=== PATIENT | male | born 1965 | race Caucasian/White ===

== ENCOUNTER 2017-09-28 08:43 | Emergency (ER) | payer OTHER ==
[~2017-09-28 08:43] MED LIST: ATEN-102 PO; CLON0.2T PO; HYDR12.56 PO; LORT7.5T3 PO; SIMV5TAB3 OR
[2017-09-28 08:48] VITALS: BP 157/84; PULSE 92; RESP 16; TEMP 97.9; O2SAT 97
[2017-09-28] MEDS ORDERED: [UNRECOGNIZED DRUG - CODE] PO (09:01)
[2017-09-28] MEDS ORDERED: SIMV20TA PO (09:01)
[2017-09-28] MEDS ORDERED: ASPI81CH6 CHEW (09:01)
[2017-09-28] MEDS ORDERED: HYDR-3580 PO (09:01)
[2017-09-28] MEDS ORDERED: AMOX500T PO (09:07)
--- NOTE | 2017-09-28 09:08 | PD ---
HPI Chief Complaint: Cold / Flu Symptoms Time Seen by Provider: 08:52 Travel History International Travel<30 days: No Contact w/Intl Traveler<30days: No Traveled to known affect area: No History of Present Illness HPI This 52-year-old male is been sick for the last 8 days. He's been having general malaise. His been having a lot of nasal congestion. Sneezing and green phlegm is coming out of his nose. He has congestion around the eyes. He' s had a slight cough. He does not have a history of sinus disease. He's been using [id number] medications without much response. He is not aware of fever. He has had a sore throat for several days. He has had tinnitus for several months. He had a sensation of fluid in his left ear yesterday PFSH Past Medical History Anxiety: Yes Diminished Hearing: No Genitourinary: Yes (RECURRENT KIDNEY STONES X 5-6) Herniated Disk: Yes Hypertension: Yes Kidney Stones: Yes Past Surgical History Surgical History: No Previous Surgery Abdominal Surgery: Yes (HEMORRHOIDECTOMY 2004) Genitourinary Surgery: Yes (KIDNEY STONE REMOVALS; URETERAL STENTS) Social History Alcohol Use: Yes (OCCASIONALLY) Tobacco Use: No Substance Use: No Allergies-Medications (Allergen,Severity, Reaction): Coded Allergies: No Known Allergies (Verified , 12/06/12) Reported Meds & Prescriptions Reported Meds & Active Scripts Active Reported Simvastatin 20 Mg Tab 20 Mg PO TWICE WEEKLY Hydrocodone-Acetaminophen 7.5 Mg-325 Mg Tab 1 Tab PO Q4H PRN Aspirin Low Dose (Aspirin) 81 Mg Chew 81 Mg CHEW DAILY Amlodipine-Valsartan 5-160 Mg Tab 1 Tab PO DAILY Review of Systems General / Constitutional: No: Fever, Chills Eyes: No: Diploplia, Pain HENT: Positive: Sore Throat, Rhinitis, Rhinorrhea, Earache Cardiovascular: No: Chest Pain or Discomfort, Palpitations Respiratory: No: Cough, Shortness of Breath Gastrointestinal: No: Vomiting, Diarrhea Genitourinary: No: Urgency, Frequency Musculoskeletal: No: Myalgias, Limited ROM Skin: No Rash, No Itching Neurologic: Positive: Weakness, No: Dizziness Hematologic/Lymphatic: No: Easy Bruising Physical Exam Narrative GENERAL: Well-developed male SKIN: Focused skin assessment warm/dry. HEAD: Atraumatic. Normocephalic. EYES: Pupils equal and round. No scleral icterus. No injection or drainage. ENT: Nasal turbinates are swollen and erythematous with yellow discharge. Some tenderness over the maxillary sinus. Left TM is clear with cerumen. Right is normal. Pharynx is erythematous. NECK: Trachea midline. No JVD. CARDIOVASCULAR: Regular rate and rhythm. No murmur appreciated. RESPIRATORY: No accessory muscle use. Clear to auscultation. Breath sounds equal bilaterally. GASTROINTESTINAL: Abdomen soft, non-tender, nondistended. Hepatic and splenic margins not palpable. MUSCULOSKELETAL: No obvious deformities. No clubbing. No cyanosis. No edema. NEUROLOGICAL: Awake and alert. No obvious cranial nerve deficits. Motor grossly within normal limits. Normal speech. PSYCHIATRIC: Appropriate mood and affect; insight and judgment normal. Data Data Last Documented VS Vital Signs Date Time Temp Pulse Resp B/P (MAP) Pulse Ox O2 Delivery O2 Flow Rate FiO2 09/28/17 08:48 97.9 92 16 157/84 (108) 97 MDM Medical Decision Making Medical Screen Exam Complete: Yes Emergency Medical Condition: Yes Medical Record Reviewed: Yes Differential Diagnosis Differential includes upper respiratory infection, sinusitis Narrative Course Symptoms are consistent with sinusitis and have been going on for 8 days. He' ll be put on amoxicillin Diagnosis Primary Impression: Acute sinusitis Qualified Codes: J01.00 - Acute maxillary sinusitis, unspecified Scripts Amoxicillin (Amoxicillin) 500 Mg Tab 500 MG PO TID for Infection for 10 Days, TAB 0 Refills Prov: Alfredito Christian MD 09/28/17 Disposition: 01 DISCHARGE HOME Condition: Stable Alfredito Christian MD Sep 28, 2017 09:08
== END 2017-09-28 09:15 | disposition home or self-care (01) ==
LOC: PHED 08:43
DX: J01.00 Acute maxillary sinusitis, unspecified (principal); I10 Essential (primary) hypertension; F41.9 Anxiety disorder, unspecified
CPT/HCPCS: 99283

== ENCOUNTER 2017-12-31 15:31 | Emergency (ER) | payer OTHER ==
[~2017-12-31] VITALS: Ht 185.4 cm; Wt 95.1 kg
[~2017-12-31 15:31] MED LIST changes: +AMOX500T PO; +ASPI81CH6 CHEW; -ATEN-102 PO; -CLON0.2T PO; +HYDR-3580 PO; -HYDR12.56 PO; -LORT7.5T3 PO; +SIMV20TA PO; -SIMV5TAB3 OR; +[UNRECOGNIZED DRUG - CODE] PO
[2017-12-31 15:39] VITALS: BP 146/72; PULSE 90; RESP 18; TEMP 99; O2SAT 97
[2017-12-31] MEDS ORDERED: IBUP1TAB7 PO (17:02)
--- NOTE | 2017-12-31 17:02 | PD ---
HPI Chief Complaint: Musculoskeletal Complaint Time Seen by Provider: 16:40 Travel History International Travel<30 days: No Contact w/Intl Traveler<30days: No Traveled to known affect area: No History of Present Illness HPI This is a 52-year-old male here with right shoulder pain ongoing for 3 weeks. He believes he may have injured it while arm wrestling his son several months prior. He has pain with range of motion. Denies paresthesia or weakness in the extremity. No chest pain or shortness of breath. Symptom severity is moderate. PFSH Past Medical History Medical History: Denies Significant Hx Anxiety: Yes Diminished Hearing: No Genitourinary: Yes (RECURRENT KIDNEY STONES X 5-6) Herniated Disk: Yes Hypertension: Yes Kidney Stones: Yes Musculoskeletal: Yes (CHRONIC LOW BACK PAIN) Influenza Vaccination: No Past Surgical History Abdominal Surgery: Yes (HEMORRHOIDECTOMY 2004) Genitourinary Surgery: Yes (KIDNEY STONE REMOVALS; URETERAL STENTS) Social History Alcohol Use: Yes (few times per week) Tobacco Use: No Substance Use: No Allergies-Medications (Allergen,Severity, Reaction): Coded Allergies: No Known Allergies (Verified Adverse Reaction, Unknown, 12/31/17) Reported Meds & Prescriptions Reported Meds & Active Scripts Active Ibuprofen 800 Mg Tab 800 Mg PO Q6HR PRN Reported Simvastatin 20 Mg Tab 20 Mg PO TWICE WEEKLY Hydrocodone-Acetaminophen 7.5 Mg-325 Mg Tab 1 Tab PO Q4H PRN Aspirin Low Dose (Aspirin) 81 Mg Chew 81 Mg CHEW DAILY Amlodipine-Valsartan 5-160 Mg Tab 1 Tab PO DAILY Review of Systems Except as stated in HPI: all other systems reviewed are Neg General / Constitutional: No: Fever Eyes: No: Visual changes HENT: No: Headaches Cardiovascular: No: Chest Pain or Discomfort Respiratory: No: Shortness of Breath Gastrointestinal: No: Abdominal Pain Genitourinary: No: Dysuria Physical Exam Narrative GENERAL: Alert and well-appearing 52-year-old male. SKIN: Warm and dry. HEAD: Normocephalic. NECK: Trachea midline. No cervical midline tenderness CARDIOVASCULAR: Regular rate and rhythm. RESPIRATORY: No accessory muscle use. Clear to auscultation. Breath sounds equal bilaterally. GASTROINTESTINAL: Abdomen soft, non-tender, nondistended. MUSCULOSKELETAL: Extremities without clubbing, cyanosis, or edema. No obvious deformities. Right upper extremity: +TTP anterior aspect of the shoulder. No obvious deformity. Positive Neer's test. Full passive range of motion. Pain with active forward extension and external rotation of the shoulder. 2+ distal pulses. Normal sensation. Brisk cap refill. Data Data Last Documented VS Vital Signs Date Time Temp Pulse Resp B/P (MAP) Pulse Ox O2 Delivery O2 Flow Rate FiO2 12/31/17 15:39 99.0 90 18 146/72 (96) 97 Orders Orders Ketorolac Inj (Toradol Inj) (12/31/17 17:15) Sling Cradle Arm (12/31/17 ) Ed Discharge Order (12/31/17 17:03) Sling Cradle Arm (12/31/17 ) MDM Medical Decision Making Medical Screen Exam Complete: Yes Emergency Medical Condition: Yes Differential Diagnosis Rotator cuff injury, tendinitis, bursitis Narrative Course 52-year-old male with right shoulder pain. I suspect this is a minor rotator cuff injury. He was given a shot of Toradol. He has a Medrol Dosepak at home prescribed by his doctor he was instructed to take this. Sling for comfort. Follow-up with PCP. Diagnosis Primary Impression: Shoulder pain Qualified Codes: M25.511 - Pain in right shoulder Referrals: Primary Care Physician Additional Instructions: Medrol Dosepak as directed. Sling for comfort. Follow-up with her primary doctor. Scripts Methocarbamol (Robaxin) 750 Mg Tab 750 MG PO QID for Muscle Spasm, #12 TAB 0 Refills Prov: Katelyn Gomez 12/31/17 Methylprednisolone Dosepak (Medrol Dosepak) 4 Mg Dspk 4 MG PO DIRECTED, #1 DSPK 0 Refills Per Pharmacist direction Prov: Katelyn Gomez 12/31/17 Disposition: DISCHARGE HOME Condition: Stable Katelyn Gomez Dec 31, 2017 17:02
[2017-12-31] MEDS ORDERED: KETOROLAC TROMETHAMINE 60 MG/2 ML (IM) VIAL IM ONE (17:15)
[2017-12-31] MEDS ORDERED: ROBA750T PO (17:34)
[2017-12-31] MEDS ORDERED: MEDR4PAK PO (17:34)
== END 2017-12-31 17:36 | disposition home or self-care (01) ==
LOC: PHEFT 15:31
DX: M25.511 Pain in right shoulder (principal); F41.9 Anxiety disorder, unspecified; I10 Essential (primary) hypertension; G89.29 Other chronic pain; M54.5 Low back pain
CPT/HCPCS: 96372; 99283; J1885